=== PATIENT | male | born 1980 | race Caucasian/White ===

== ENCOUNTER 2017-12-25 00:02 | Inpatient (IN) | payer OTHER ==
[~2017-12-25] VITALS: Ht 177.8 cm; Wt 97.5 kg
[2017-12-25] MEDS ORDERED: FENOFIBRATE145 MG (01:02)
[2017-12-25] MEDS ORDERED: CRESTOR20 MG (01:21)
[2017-12-26] MEDS ORDERED: ULTRACET PO (10:49)
[2017-12-26] MEDS ORDERED: DICLOFENAC SODI75 MG PO (10:49)
== END 2017-12-26 12:39 | disposition home or self-care (01) | DRG 343 ==
LOC: ER 00:02 → SURG 02:05 → SEC-K 02:05 → SURG 03:50
PROVIDERS: Surgery
PROC: 0DTJ4ZZ Resection of Appendix, Percutaneous Endoscopic Approach (ICD-10-PCS; principal; 2017-12-25 10:45)
DX: K35.89 Other acute appendicitis (principal)